=== PATIENT | female | born 1960 | race Caucasian/White ===

== ENCOUNTER → 2016-03-06 | Outpatient (REF) | payer OTHER ==
[~2016-03-06] MED LIST: AUGM875T27 OR; CYCL5TA PO; CYMB60CA3 PO; DRIS50002 PO; ENDOCET PO; GLUC500C5 PO; MULTCAP11 PO; NAPR500T OR; NAPR500T2 PO; PERC10TA17 PO; PERCOCET OR; PERCOCET PO; SIMV40TA2 PO; TYLE650T30 PO; VARE1TA PO; ZOFR4TAB3 OR; lortab PO
[2016-03-06 19:12] LABS: BASO # 0.1 K/mm3 (0.0-0.2); EOS # 0.5 K/mm3 (0.0-0.50); EOS % 4.6 % (0.0-3.0); LARGE UNSTAINED CELL # 0.3 K/mm3 (0.0-0.4); LARGE UNSTAINED CELL % 3.2 % (0.0-4.0); LYMPH # 5.4 K/mm3 (1.5-4.5); LYMPH % 52.4 % (24.0-44.0); MEAN CORPUSCULAR HEMOGLOBIN 30.2 pg (27.0-33.0); MEAN CORPUSCULAR HGB CONC 33.3 g/dl (32.0-36.5); MEAN CORPUSCULAR VOLUME 90.6 fl (80.0-96.0); MONO # 0.6 K/mm3 (0.0-0.8); MONO % 5.8 % (0.0-5.0); NEUTROPHILS # 3.4 K/mm3 (1.8-7.7); PLATELET COUNT, AUTOMATED 271 k/mm3 (150-450); RED CELL DISTRIBUTION WIDTH 12.5 % (11.5-14.5)
[2016-03-06 19:15] LABS: WHITE BLOOD COUNT 10.3 K/mm3 (4.0-10.0)
[2016-03-06 20:46] LABS: ALBUMIN 4.7 GM/DL (3.2-5.2); ALBUMIN/GLOBULIN RATIO 1.68 (1.00-1.93); ALKALINE PHOSPHATASE 99 U/L (45-117); ALT/SGPT 21 U/L (12-78); ANION GAP 7 MEQ/L (8-16); AST/SGOT 18 U/L (15-37); BILIRUBIN,TOTAL 0.3 MG/DL (0.2-1.0); BLOOD UREA NITROGEN 10 MG/DL (7-18); CALCIUM LEVEL 9.1 MG/DL (8.5-10.1); CARBON DIOXIDE LEVEL 33 MEQ/L (21-32); CHLORIDE LEVEL 101 MEQ/L (98-107); CHOLESTEROL LEVEL 286 MG/DL (<200); CREATININE FOR GFR 0.84 MG/DL (0.55-1.02); GLOMERULAR FILTRATION RATE > 60.0 (>51); GLUCOSE, FASTING 118 MG/DL (70-105); SODIUM LEVEL 141 MEQ/L (136-145); TOTAL PROTEIN 7.5 GM/DL (6.4-8.2); TRIGLYCERIDES LEVEL 275 MG/DL (<150)
== END ==
LOC: M SFHCADAM 15:57
PROVIDERS: ATTEND Physician Assistant Medical
DX: F17.210 Nicotine dependence, cigarettes, uncomplicated (principal); E55.9 Vitamin D deficiency, unspecified; G89.29 Other chronic pain

== ENCOUNTER → 2016-03-07 | Outpatient (REF) | payer OTHER ==
[2016-03-07 14:11] LABS: FREE T4 1.22 NG/DL (0.76-1.46)
== END ==
LOC: M SFHCADAM 07:45
PROVIDERS: ATTEND Physician Assistant Medical
DX: G89.29 Other chronic pain (principal); R79.89 Other specified abnormal findings of blood chemistry

== ENCOUNTER → 2016-03-18 | Outpatient (CLI) | payer OTHER ==
--- NOTE | 2016-03-19 05:05 | REP ---
Clinical: Lower back pain. Technique: AP, lateral, bilateral oblique and coned-down views of the lumbosacral spine. Findings: Alignment and lordosis maintained. No acute fracture / compression injury or subluxation. Mild osteopenia is suggested along with mild multilevel degenerative changes including disc space narrowing at the L5-S1 level as well as lower thoracic and T12-L1 levels with minimal anterior spurring. No spondylolysis or spondylolisthesis appreciated. Impression: Mild osteopenia and mild degenerative changes as detailed above. Signed by Kody Burch MD 03/19/2016 04:57 A
--- NOTE | 2016-03-19 05:07 | REP ---
Clinical: Cervicalgia a Technique: AP, lateral, flexion/extension, bilateral oblique, and open-mouth views. Findings: Alignment and lordosis maintained. No acute fracture / compression injury or subluxation. Minimal age-related changes include subtle anterior spurring at the C6-7 and to a lesser extent the C5-6 levels as well as very minimal disc space narrowing at the C7-T1 level. Spinous processes are intact and normal. Prevertebral soft tissues are normal. Oblique views demonstrate patent neural foramen. Open mouth view demonstrates normal C1-C2 articulation and odontoid process. Impression: Mild age-related degenerative changes. Signed by Kody Burch MD 03/19/2016 04:59 A
--- NOTE | 2016-03-19 05:09 | REP ---
Clinical: Pain . Technique: AP, lateral views of the left knee. Findings: The osseous structures and joint spaces are intact and normal. There is no evidence for acute fracture or dislocation. No joint effusion is appreciated. Surrounding soft tissues are unremarkable. No subcutaneous emphysema or radiodense foreign body. No overt arthritic degenerative changes appreciated. Impression: Normal age-appropriate left knee radiographs. Signed by Kody Burch MD 03/19/2016 05:01 A
== END ==
LOC: M ADAMS 13:46
PROVIDERS: ATTEND Physician Assistant Medical
DX: M54.2 Cervicalgia (principal); G89.29 Other chronic pain; M54.5 Low back pain

== ENCOUNTER → 2016-04-15 | Outpatient (CLI) | payer OTHER ==
--- NOTE | 2016-04-19 00:12 | ECWPNPC ---
PATIENT NAME: SARKIS CORONADO : 1960 GENDER: FEMALE VISIT DATE: 04/15/2016 DISCHARGE DATE: 04/15/16 1132 VISIT LOCKED DATE TIME: PHYSICIAN: FANNIE MOREIRA RESOURCE: FANNIE MOREIRA REASON FOR APPOINTMENT 1. CHRONIC PAIN RECONSULT HISTORY OF PRESENT ILLNESS FALL RISK SCREENING: SCREENING :NO FALLS IN THE PAST YEAR PAIN SCREENING: PATIENT HAS A COMPLAINT OF ACUTE OR CHRONIC PAIN YES TODAY'S VISIT: NOTES: HAD BEEN SEEING PCP WHOM HAD BEEN PRESCRIBING HER PAIN MEDS -VWAS DECREASED IN DOSAGE AND WAS PUT ON WEEKLY MEDS..REPORTS PAIN 7/10. NOTES PAIN IS CENTERED OVER RIGHT SHOULDER, LOW BACK AND LEFT KNEE. LEVEL OF PAIN DEPENDS ON ACTIVITY. STATES SHE IS HAVING HEART PROBLEMS - HAS BEEN TO THE ER 3 TIMES. USES NTG, BABY ASPIRIN TO TREAT CHEST PAIN BUT HAS NOT YET SEEN A WAREHOUSE ORDER PICKER. RATES PAIN LEVEL TODAY 7/10. DESCRIBES IT CONSTANT ACHING SHARP STABBING AND SORE.. CURRENT MEDICATIONS TAKING NAPROXEN 500 MG TABLET 1 TABLET NEEDED ORALLY EVERY 12 HRS TAKING VITAMIN D (ERGOCALCIFEROL) 10976 UNIT CAPSULE 1 CAPSULE ORALLY ONCE A WEEK TAKING CYCLOBENZAPRINE HCL 5 MG TABLET 1 TABLET ORALLY THREE TIMES A DAY NEEDED TAKING OXYCODONE-ACETAMINOPHEN 7.5-325 MG TABLET 1 TABLET NEEDED ORALLY EVERY 8 HRS, MDD 3 NOT-TAKING FISH OIL 1000 MG CAPSULE 2 CAPSULE ORALLY TWICE DAILY MEDICATION LIST REVIEWED AND RECONCILED WITH THE PATIENT PAST MEDICAL HISTORY CHRONIC NECK AND LOW BACK PAIN REQUIRING MARZIPAN MAKER OPIATE MEDICATIONS - PREVIOUSLY FOLLOWED BY [facility]IN [facility] - NO CONCERNS, DUE TO APPOINTMENT TIME CONFLICTS MED MANAGEMENT WAS DEFERRED BACK TO PCP HYPERLIPIDEMIA 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 SURGICAL HISTORY EXPLORATORY LAP C SECTION X [address] PEREIRAH - [facility] 08/30/13 COLPOSCOPY FAMILY HISTORY FATHER: ALIVE MOTHER: 67 YRS MATERNAL GRAND FATHER: 3DAUGHTER(S) . BROTHER OF [place] BUT NOT HODGKIN LYMP.3 DAUGHTERS -1 HAD BONE [place] , NON HODGKINS LYMPHOBLASTIC LYMPHOMA B CELL IN THE BONES, HAS ANOTHER CANCER BUT NO DIAGNOSIS OF YET. ONE TWIN IS HAVING SAME BONE ISSUES AND THE DAUGHTER WITH CA AND WILL BE HAVING A WORK UP THURS. SOCIAL HISTORY GENERAL: TOBACCO USE ARE YOU A:CURRENT SMOKER HOW MANY CIGARETTES A DAY DO YOU SMOKE?5 OR LESS HOW SOON AFTER YOU WAKE UP DO YOU SMOKE YOUR FIRST CIGARETTE?31-60 MIN HOW OFTEN DO YOU SMOKE CIGARETTES?SOME DAYS, BUT NOT EVERY DAY PATIENT COUNSELED ON THE DANGERS OF TOBACCO USE AND URGED TO QUIT:04/15/2016 ARE YOU INTERESTED IN QUITTING?THINKING ABOUT QUITTING COUNSELED THE PATIENT ON SMOKING CESSATION, EDUCATION [id number]/20/2017 ADDITIONAL FINDINGS: TOBACCO USERCHEWS FINE CUT TOBACCO DENIES EVERY DOING THIS. SMOKING CESSATION INFORMATION GIVEN10/16/2015 ALCOHOL SCREENING POINTS: 1, INTERPRETATION: NEGATIVE. RECREATIONAL DRUG USE DRUG USE?NO CAFFEINE CAFFEINE USE?YES HOW OFTEN AND HOW MUCH? 5-6 CUPS COFFEE DAILY SEXUAL HX HAD SEX IN THE LAST 12 MONTHS (VAGINAL, ORAL, OR ANAL)?: YES, WITH: MEN ONLY, USE PROTECTION?: NO, HAVE YOU EVER HAD AN STD?: NO, LMP:: 06/2013. 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 DIET: LOW FAT, LOW CHOLESTEROL. EXERCISE: NO REGULAR EXERCISE - STAYS ACTIVE. RESTORATIONISM: NO HOAHAOISM BELIEFS THAT WOULD IMPACT HEALTH CARE. LANGUAGE: TELUGU. EDUCATION: COLLEGE. PLAN OF CARE FOR THE PAIN CLINIC REVIEWED WITH PATIENT AND SHE VERBALIZED UNDERSTANDING. LEARNING BARRIERS / SPECIAL NEEDS CHANGE FROM LAST VISIT?NO BARRIERS TO LEARNING?NO HEARING IMPAIRED?NO VISION IMPAIRED?NO COGNITIVELY IMPAIRED?NO READINESS TO LEARN?YES LEARNING PREFERENCES?NO LEARNING CAPABILITIES PRESENT?YES EMOTIONAL BARRIERS?NO PAIN CLINIC PFS, CLERGY, PUBLIC HEALTH REFERRALS PFS REFERRAL NEEDED?NO CLERGY REFERRAL NEEDED?NO PUBLIC HEALTH REFERRAL NEEDED?NO ADVANCED DIRECTIVES HEALTH CARE PROXY?NO POWER OF TUBE BACKER?NO : YES. DOMESTIC VIOLENCE: NONE. HOSPITALIZATION/MAJOR DIAGNOSTIC PROCEDURE SURGERY RELATED ONLY REVIEW OF SYSTEMS CONSTITUTIONAL: ANY CHANGE IN YOUR MEDICAL CONDITION? YES CHEST PAIN AND PRESSURE THAT SHE IS BEING WORKED UP FOR . CHILLS NO . FEVER NO . INFECTION: DO YOU HAVE NEW INFECTIONS? NO . DO YOU HAVE HISTORY OF MRSA? NO . MUSCULOSKELETAL: ANY NEW PATTERNS OF PAIN OR NUMBNESS? YES PAIN HAS INCREASED IN INTENSITY AND SHE IS UNDER A HUGE AMOUNT OF STRESS AT THIS TIME . SYTEMIC LUPUS NO . GASTROENTEROLOGY: ANY NEW CHANGE IN BOWEL CONTROL? NO . BARRETTS ESOPHAGUS NO . CIRRHOSIS NO . HEPATITIS NO . LIVER FAILURE NO . ACID REFLUX NO . UNEXPLAINED WEIGHT LOSS NO . GENITOURINARY: ANY NEW CHANGE IN BLADDER CONTROL? NO . IS THERE A CHANCE YOU COULD BE ? NO . HEMATOLOGY/LYMPH: DO YOU TAKE ANY BLOOD THINNERS? (FOR EXAMPLE- COUMADIN, PLAVIX, AGGRENOX, PLATEL, PRADAXA, OR XARELTO) NO . WHEN WAS YOUR LAST DOSE? DATE: TIME: . LOW PLATELET COUNT NO . SICKLE CELL DISEASE NO . VON WILLIEBRANDS NO . FACTOR V LEIDEN NO . THALLASEMIA NO . ANEMIA NO . EASY BRUISING NO . NEUROLOGY: HAVE YOU FALLEN IN THE PAST 6 MONTHS? YES, SLIPPED ON ICE--NO FRACTURES . ANY NEW EXTREMITY NUMBNESS OR WEAKNESS? NO . HEAD INJURY NO . DEMENTIA NO . CEREBRAL PALSY NO . MULTIPLE SCLEROSIS NO . DIZZINESS NO . HEADACHE ADMITS, HISTORY IF MIGRAINES . STROKES NO . VERTIGO NO . CARDIOLOGY: DO YOU HAVE A PACEMAKER OR DEFIBRILLATOR? NO . ANGINA NO . HEART ATTACK NO . HEART SURGERY NO . CONGESTIVE HEART FAILURE/FLUID OVERLOAD NO . CHEST PAIN PATIENT ADMITS, LEFT-SIDED, MIDSTERNALPRESSURE-LIKE SENSATION, , RADIATING TO LEFT ARM, RANDOM, RELIEVED WITH SUBLINGUAL NTG, SHARP. BEING WORKED UP AT [facility]. SCHEDULED FOR AN ECHO ON . . HIGH BLOOD PRESSURE NO . IRREGULAR HEART BEAT NO . RESPIRATORY: HAVE YOU BEEN SICK IN THE PAST WEEK? NO . FEVER NO . FLU LIKE SYMPTOMS? NO . CPAP NO . BYPAP NO . ASTHMA NO . EMPHYSEMA NO . CHRONIC LUNG DISEASES NO . SHORTNESS OF BREATH ON EXERTION NO . COUGH NO . SNORING NO . INTEGUMENTARY: DO YOU HAVE ANY RASHES OR OPEN SORES? NO . ALLERGIC/IMMUNO: ARE YOU ALLERGIC TO SHELLFISH OR IV DYE? NO . ANY NEW ALLERGIES? NO . PSYCHIATRIC: DO YOU HAVE THOUGHTS OF HURTING YOURSELF OR SOMEONE ELSE? NO . ARE YOU ABUSED, NEGLECTED, OR IN AN UNSAFE ENVIRONMENT? NO . ENDOCRINOLOGY: ARE YOU DIABETIC? NO . THYROID DISORDER NO . OTHER: DO YOU NEED ANY PRESCRIPTIONS? YES OXYCODONE / ACETOMIN., CYCLOBENZAPRINE . IF YES, PLEASE LIST: ____ . ANY NEW PROBLEMS WITH YOUR MEDICATIONS? NO . WHEN DID YOU LAST EAT? ____ . WHEN DID YOU LAST DRINK? ____ . WHAT DID YOU LAST DRINK? ____ . NAME OF PERSON DRIVING YOU HOME? ____ . DO YOU HAVE ANY OTHER QUESTIONS OR CONCERNS YES, WOULD LIKE TO DISCUSS MEDICTION AND PAIN RELIEF . REVIEWED BY: PROVIDER: FANNIE MAURICIO . VITAL SIGNS WT 117.8 LBS, HT 64 IN, BMI 20.22 INDEX, BP 103/69 MM HG, HR 87 /MIN, RR 16 /MIN, TEMP 98.4 F, OXYGEN SAT % 96%, NA INITIALS SC 15:33, REVIEWED BY: AD. EXAMINATION GENERAL EXAMINATION: PSYCHALERT , ORIENTED X 3 , ANXIOUS, GOOD EYE CONTACT. HEENT:NORMOCEPHALIC. NO LYMPHADENOPATHY. NO THYROMEGALY.. LUNGS:CLEAR TO AUSCULTATION BILATERALLY. NO WHEEZES NO RALES NO RHONCHI. HEART:HEART RATE REGULAR, RAPID. NO CARDIAC BRUITS. NO MURMUR HEARD TODAY.. MUSCULOSKELETAL:TENDER WITH PALPATION OVER LUMBOSACRAL AXIS. POINTS AND TIGHT FIBROUS BANDS ARE IDENTIFIED OVER LUMBAR PARAVERTEBRAL MUSCLES. RISES EASILY TO A STANDING POSITION. POSTURE UPRIGHT. GAIT IS WIDE-BASED VERY SLIGHT RIGHT LEG LIMP. POINT TENDERNESS OVER ANTERIOR AND POSTERIOR AC JOINT. RIGHT SIDE. ABLE TO ABDUCT RIGHT SHOULDER TO 90 . PAIN IS NOTED WITH INTERNAL AND EXTERNAL ROTATION. EQUAL AND STRONG. NO FOCAL WEAKNESS IDENTIFIED IN THE UPPER OR LOWER EXTREMITIES.. JOINTS:LEFT KNEE TENDERNESS TO PALPATION. NO SIGNIFICANT EDEMA. NO WARMTH NOTED ON PALPATION. NEUROLOGIC EXAM:EOMS ARE INTACT WITHOUT NYSTAGMUS. CRANIAL NERVES II THROUGH XII ARE GROSSLY INTACT. SPEECH IS NON-DYSARTHRIC. RAPID REPEATING ARM MOVEMENTS NON-DYSMETRIC. NO FOCAL SENSORY DEFICIT.. ASSESSMENTS PRIMARY OSTEOARTHRITIS INVOLVING MULTIPLE JOINTS - M15.0 (PRIMARY) OTHER CHRONIC PAIN - G89.29 PAIN IN RIGHT SHOULDER - M25.511 LUMBAR DISC DISPLACEMENT WITHOUT MYELOPATHY - M51.26 CHRONIC PRESCRIPTION OPIATE USE - Z79.891 TREATMENT PRIMARY OSTEOARTHRITIS INVOLVING MULTIPLE JOINTS REFILL OXYCODONE-ACETAMINOPHEN TABLET, 7.5-325 MG, 1 TABLET NEEDED, ORALLY, EVERY 8 HRS, MDD 3, 15 DAYS, 45, REFILLS 0 [facility] MRI SPINE, L.S. WITH [id number],SUSAN M 04/15/2016 4:41:59 PM > INCREASED BACK PAIN NOTES: NARCOTIC AGREEMENT TODAY. UTOX TODAY. CLINICAL NOTES: ISTOP REGISTRY REVIEWED AND DEMNOSTRATES COMPLLIANCE. BRINGS IN MEDICATIONS WHICH IS APPROPRIATE FOR WHAT WAS DISPENSED. I DID ASK SARKIS BRYANT THE REASON FOR HER MEDICATION CHANGE AND BEING PUT ON A WEEKLY REFILL. SHE STATES THAT THERE WAS A PERSONALITY DIFFERENCE. I WILL FURTHER EXPLORE THIS AND I WILL PLAN TO SEE HER BACK ON WITHIN THE 2 WEEK PERIOD TO DISCUSS FURTHER OPTIONS. PROCEDURE CODES FA211 ESTABILISHED PATIENT [facility] CHARGE DISPOSITION & COMMUNICATION FOLLOW UP 2 WEEKS (REASON: SHARMILA TO GET IMAGING ON RIGHT SHOULDER AT [facility] - CHECK AUTH FOR MRI LUMBAR SPINESRACUSE) ELECTRONICALLY SIGNED BY LUIS EWING ON 04/18/2016 AT 11:37 AM EST DISCLAIMER : THIS IS A VISIT SUMMARY EXTRACTED FROM THE [employer] CHART. IT IS NOT A COPY OF THE [employer] PROGRESS NOTE. LISA
== END ==
LOC: M PAIN 15:20
PROVIDERS: ATTEND Nurse Practitioner Family
DX: Z09 Encounter for follow-up examination after completed treatment for conditions other than malignant neoplasm (principal); G89.29 Other chronic pain; M15.0 Primary generalized (osteo)arthritis; M25.511 Pain in right shoulder; M51.26 Other intervertebral disc displacement, lumbar region; M54.2 Cervicalgia; M54.5 Low back pain; F17.210 Nicotine dependence, cigarettes, uncomplicated; H18.50 Unspecified hereditary corneal dystrophies; G43.909 Migraine, unspecified, not intractable, without status migrainosus; E78.5 Hyperlipidemia, unspecified; R07.89 Other chest pain; M25.562 Pain in left knee; Z79.891 Long term (current) use of opiate analgesic; Z79.1 Long term (current) use of non-steroidal anti-inflammatories (NSAID); Z79.899 Other long term (current) drug therapy; Z86.73 Personal history of transient ischemic attack (TIA), and cerebral infarction without residual deficits; Z86.718 Personal history of other venous thrombosis and embolism

== ENCOUNTER → 2016-05-16 | Outpatient (CLI) | payer OTHER ==
--- NOTE | 2016-05-17 00:56 | ECWPNPC ---
PATIENT NAME: SARKIS CORONADO : 1960 GENDER: FEMALE VISIT DATE: 05/16/2016 DISCHARGE DATE: 05/16/16 1615 VISIT LOCKED DATE TIME: PHYSICIAN: FANNIE MOREIRA RESOURCE: FANNIE MOREIRA REASON FOR APPOINTMENT 1. BACK/SHOULDER HISTORY OF PRESENT ILLNESS HISTORY OF PRESENT ILLNESS: PAIN THE PATIENT DESCRIBES THE PAIN... FALL RISK SCREENING: SCREENING :NO FALLS IN THE PAST YEAR TODAY'S VISIT: NOTES: WAS SCHEDULED TO ETURN IN 2 WEEKS AFTER HER LAST VISIT. WAS NOT ABLE TO KEEP THIS APPOINTMENT DUE TO HER LIFE SCHEDULE. HAS HAD NOOXYCODONE SINCE THIS. REPORTS SHE HAS BEEN USING NATURAL REMEDIES AND HER HORSE MEDICINES AND STATE HER PAIN IS MANAGED. REPORTS SHE IS HAVING GI DISCOMFORT FROM AN ANTI INFLAMMATORY. REPORTS SHE IS VERY UPSET WITH HAVING HAD HER MEDS DISRUPTED THIS WAS "JUST PERFECT".. CURRENT MEDICATIONS TAKING NAPROXEN 500 MG TABLET 1 TABLET NEEDED ORALLY EVERY 12 HRS TAKING VITAMIN D (ERGOCALCIFEROL) 77653 UNIT CAPSULE 1 CAPSULE ORALLY ONCE A WEEK TAKING CYCLOBENZAPRINE HCL 5 MG TABLET 1 TABLET ORALLY THREE TIMES A DAY NEEDED TAKING OXYCODONE-ACETAMINOPHEN 7.5-325 MG TABLET 1 TABLET NEEDED ORALLY EVERY 8 HRS, MDD 3 NOT-TAKING FISH OIL 1000 MG CAPSULE 2 CAPSULE ORALLY TWICE DAILY MEDICATION LIST REVIEWED AND RECONCILED WITH THE PATIENT PAST MEDICAL HISTORY CHRONIC NECK AND LOW BACK PAIN REQUIRING ASSISTED OPIATE MEDICATIONS - PREVIOUSLY FOLLOWED BY [facility] - NO CONCERNS, DUE TO APPOINTMENT TIME CONFLICTS MED MANAGEMENT WAS DEFERRED BACK TO PCP HYPERLIPIDEMIA 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 SOCIAL HISTORY GENERAL: TOBACCO USE ARE YOU A:CURRENT SMOKER HOW MANY CIGARETTES A DAY DO YOU SMOKE?11-20 HOW SOON AFTER YOU WAKE UP DO YOU SMOKE YOUR FIRST CIGARETTE?WITHIN 5 MIN HOW OFTEN DO YOU SMOKE CIGARETTES?EVERY DAY PATIENT COUNSELED ON THE DANGERS OF TOBACCO USE AND URGED TO QUIT:05/16/2016 ARE YOU INTERESTED IN QUITTING?NOT READY TO QUIT COUNSELED THE PATIENT ON SMOKING EFFECTS, EDUCATION [id number]/23/2017 ADDITIONAL FINDINGS: TOBACCO USERCHEWS FINE CUT TOBACCO DENIES EVERY DOING THIS. SMOKING CESSATION INFORMATION GIVEN10/16/2015 ALCOHOL SCREENING POINTS: 1, INTERPRETATION: NEGATIVE. RECREATIONAL DRUG USE DRUG USE?NO CAFFEINE CAFFEINE USE?YES HOW OFTEN AND HOW MUCH? 5-6 CUPS COFFEE DAILY SEXUAL HX HAD SEX IN THE LAST 12 MONTHS (VAGINAL, ORAL, OR ANAL)?: YES, WITH: MEN ONLY, USE PROTECTION?: NO, HAVE YOU EVER HAD AN STD?: NO, LMP:: 06/2013. OCCUPATION: IN HOUSE APPLICATIONS SYSTEMS ANALYST. DIET: LOW FAT, LOW CHOLESTEROL. EXERCISE: NO REGULAR EXERCISE - STAYS ACTIVE. YAZIDI: NO DENOMINATIONAL BELIEFS THAT WOULD IMPACT HEALTH CARE. LANGUAGE: ALGERIAN. EDUCATION: COLLEGE. PLAN OF CARE FOR THE PAIN CLINIC REVIEWED WITH PATIENT AND SHE VERBALIZED UNDERSTANDING. LEARNING BARRIERS / SPECIAL NEEDS CHANGE FROM LAST VISIT?NO BARRIERS TO LEARNING?NO HEARING IMPAIRED?NO VISION IMPAIRED?NO COGNITIVELY IMPAIRED?NO READINESS TO LEARN?YES LEARNING PREFERENCES?NO LEARNING CAPABILITIES PRESENT?YES EMOTIONAL BARRIERS?NO PAIN CLINIC PFS, CLERGY, PUBLIC HEALTH REFERRALS PFS REFERRAL NEEDED?NO CLERGY REFERRAL NEEDED?NO PUBLIC HEALTH REFERRAL NEEDED?NO ADVANCED DIRECTIVES HEALTH CARE PROXY?NO POWER OF AV[employer] SHOP SUPERVISOR?NO : YES. DOMESTIC VIOLENCE: NONE. REVIEW OF SYSTEMS CONSTITUTIONAL: LEVEL OF FUNCTIONALITY STATES THAT SHE IS ON THE ROAD TO [facility] FOR HER DAUGHTERS CARE, AND WORKS 6 HRS A DAY AND CARES FOR 11 HOURSES. . ANY CHANGE IN YOUR MEDICAL CONDITION? NO . CHILLS NO . FEVER NO . INFECTION: DO YOU HAVE NEW INFECTIONS? NO . DO YOU HAVE HISTORY OF MRSA? NO . MUSCULOSKELETAL: ANY NEW PATTERNS OF PAIN OR NUMBNESS? NO . GASTROENTEROLOGY: GENERAL DENIES HEMATEMESIS OR HEMATACHEZIA . ANY NEW CHANGE IN BOWEL CONTROL? NO . GENITOURINARY: ANY NEW CHANGE IN BLADDER CONTROL? NO . IS THERE A CHANCE YOU COULD BE ? NO . HEMATOLOGY/LYMPH: DO YOU TAKE ANY BLOOD THINNERS? (FOR EXAMPLE- COUMADIN, PLAVIX, AGGRENOX, PLATEL, PRADAXA, OR XARELTO) NO . WHEN WAS YOUR LAST DOSE? DATE: TIME: . NEUROLOGY: HAVE YOU FALLEN IN THE PAST 6 MONTHS? YES, OVER THE WINTER HER LEFT KNEE GAVE OUT. NO INJURY . ANY NEW EXTREMITY NUMBNESS OR WEAKNESS? NO . CARDIOLOGY: DO YOU HAVE A PACEMAKER OR DEFIBRILLATOR? NO . RESPIRATORY: HAVE YOU BEEN SICK IN THE PAST WEEK? NO . FEVER NO . FLU LIKE SYMPTOMS? NO . COUGH NO . INTEGUMENTARY: DO YOU HAVE ANY RASHES OR OPEN SORES? NO . ALLERGIC/IMMUNO: ARE YOU ALLERGIC TO SHELLFISH OR IV DYE? NO . ANY NEW ALLERGIES? NO . PSYCHIATRIC: DO YOU HAVE THOUGHTS OF HURTING YOURSELF OR SOMEONE ELSE? NO . ARE YOU ABUSED, NEGLECTED, OR IN AN UNSAFE ENVIRONMENT? NO . ENDOCRINOLOGY: ARE YOU DIABETIC? NO . OTHER: DO YOU NEED ANY PRESCRIPTIONS? YES . IF YES, PLEASE LIST: ____PERCOCET . ANY NEW PROBLEMS WITH YOUR MEDICATIONS? NO . WHEN DID YOU LAST EAT? ____ . WHEN DID YOU LAST DRINK? ____ . WHAT DID YOU LAST DRINK? ____ . NAME OF PERSON DRIVING YOU HOME? ____ . DO YOU HAVE ANY OTHER QUESTIONS OR CONCERNS NO . REVIEWED BY: PROVIDER: FANNIE MAURICIO . VITAL SIGNS WT 121.2 LBS, HT 64 IN, BMI 20.80 INDEX, BP 109/72 MM HG, HR 86 /MIN, RR 16 /MIN, TEMP 96.5 F, OXYGEN SAT % 98%, NA INITIALS SC15 :51, REVIEWED BY: AD. EXAMINATION GENERAL EXAMINATION: PSYCHALERT , ORIENTED X 3 , PRESSURED SPEECH, FRUSTRATED. MUSCULOSKELETAL:DECREASED ROM OF RIGHT SHOULDER. POSTURE UPRIGHT. GAIT NONANTALGIC. ASSESSMENTS PRIMARY OSTEOARTHRITIS INVOLVING MULTIPLE JOINTS - M15.0 TREATMENT OTHERS NOTES: USE NATURAL PAIN RELIEVING REMEDIES. RECOMMEND NO OPIOIDS. PROCEDURE CODES FA211 ESTABILISHED PATIENT [facility] CHARGE DISPOSITION & COMMUNICATION FOLLOW UP CALL IF APPOINTMENT NEEDED ELECTRONICALLY SIGNED BY LUIS EWING ON 05/16/2016 AT 04:29 PM EDT DISCLAIMER : THIS IS A VISIT SUMMARY EXTRACTED FROM THE [employer] CHART. IT IS NOT A COPY OF THE [employer] PROGRESS NOTE. AMYD
== END ==
LOC: M PAIN 15:20
PROVIDERS: ATTEND Nurse Practitioner Family
DX: M54.5 Low back pain (principal); M54.2 Cervicalgia; M15.0 Primary generalized (osteo)arthritis; G89.29 Other chronic pain; Z79.899 Other long term (current) drug therapy; Z79.891 Long term (current) use of opiate analgesic; E78.5 Hyperlipidemia, unspecified; F17.210 Nicotine dependence, cigarettes, uncomplicated; E55.9 Vitamin D deficiency, unspecified

== ENCOUNTER → 2017-12-24 | Outpatient (REF) | payer OTHER ==
[2017-12-24 13:31] LABS: BASO # 0.1 10^3/uL (0.0-0.2); BASO % 0.7 % (0.0-1.0); EOS # 0.4 10^3/uL (0.0-0.50); EOS % 4.5 % (0.0-3.0); HEMATOCRIT 44.4 % (36.0-47.0); HEMOGLOBIN 14.5 g/dl (12.0-15.5); IMMATURE GRANULOCYTE % 0.2 % (0-3.0); LYMPH # 3.5 10^3/uL (1.5-4.5); LYMPH % 39.3 % (24.0-44.0); MEAN CORPUSCULAR HEMOGLOBIN 29.8 pg (27.0-33.0); MEAN CORPUSCULAR HGB CONC 32.7 g/dl (32.0-36.5); MEAN CORPUSCULAR VOLUME 91.2 fl (80.0-96.0); MONO # 0.6 10^3/uL (0.0-0.8); MONO % 6.4 % (0.0-5.0); NEUTROPHILS # 4.3 10^3/uL (1.8-7.7); NEUTROPHILS % 48.9 % (36.0-66.0); PLATELET COUNT, AUTOMATED 256 10^3/uL (150-450); RED BLOOD COUNT 4.87 10^6/uL (4.00-5.40); RED CELL DISTRIBUTION WIDTH 13.3 % (11.5-14.5); WHITE BLOOD COUNT 8.9 10^3/uL (4.0-10.0)
[2017-12-24 13:49] LABS: ALBUMIN 4.3 GM/DL (3.2-5.2); ALKALINE PHOSPHATASE 84 U/L (45-117); ALT/SGPT 27 U/L (12-78); ANION GAP 5 MEQ/L (8-16); AST/SGOT 20 U/L (7-37); BILIRUBIN,TOTAL 0.4 MG/DL (0.2-1.0); BLOOD UREA NITROGEN 12 MG/DL (7-18); CALCIUM LEVEL 9.5 MG/DL (8.5-10.1); CARBON DIOXIDE LEVEL 31 MEQ/L (21-32); CHLORIDE LEVEL 103 MEQ/L (98-107); CHOLESTEROL LEVEL 321 MG/DL (<200); CHOLESTEROL RISK RATIO 7.642 (<5); CREATININE FOR GFR 0.74 MG/DL (0.55-1.30); GLOMERULAR FILTRATION RATE > 60.0 (>51); GLUCOSE, FASTING 90 MG/DL (70-100); HDL CHOLESTEROL 42 MG/DL (>40); LDL CHOLESTEROL 237 MG/DL (<100); NON-HDL-C 279 MG/DL; POTASSIUM SERUM 4.2 MEQ/L (3.5-5.1); SODIUM LEVEL 139 MEQ/L (136-145); TOTAL PROTEIN 7.6 GM/DL (6.4-8.2); TRIGLYCERIDES LEVEL 209 MG/DL (<150)
[2017-12-24 13:52] LABS: TOTAL 25(OH) VITAMIN D 27.6 NG/ML (30.0-100.0)
[2017-12-24 13:58] LABS: ESTIMATED AVERAGE GLUCOSE 117 MG/DL (60-110); HEMOGLOBIN A1c 5.7 %
== END ==
LOC: M LAB REF 12:35
DX: Z13.9 Encounter for screening, unspecified (principal)

== ENCOUNTER → 2019-05-18 | Outpatient (CLI) | payer OTHER ==
[~2019-05-18] MED LIST changes: -CYCL5TA PO; +CYCL5TAB5 PO; -DRIS50002 PO; +DRIS50003 PO; +NAPR-885 PO; -NAPR500T2 PO; +ONDA-228 OR; +OXYC1TAB23 OR; -PERC10TA17 PO; +PERC10TA26 PO; -PERCOCET OR; -SIMV40TA2 PO; +SIMV40TA20 PO; -ZOFR4TAB3 OR
[2019-05-18 15:32] LABS: BASO # 0.1 10^3/uL (0.0-0.2); BASO % 0.7 % (0.0-1.0); EOS # 0.5 10^3/uL (0.0-0.5); EOS % 4.7 % (0.0-3.0); HEMATOCRIT 46.1 % (36.0-47.0); HEMOGLOBIN 15.2 g/dl (12.0-15.5); LYMPH # 4.6 10^3/uL (1.5-5.0); LYMPH % 48.3 % (24.0-44.0); MEAN CORPUSCULAR HEMOGLOBIN 30.6 pg (27.0-33.0); MEAN CORPUSCULAR VOLUME 92.9 fl (80.0-96.0); MONO # 0.7 10^3/uL (0.0-0.8); MONO % 7.3 % (0.0-5.0); NEUTROPHILS # 3.7 10^3/uL (1.5-8.5); NEUTROPHILS % 38.8 % (36.0-66.0); PLATELET COUNT, AUTOMATED 271 10^3/uL (150-450); RED BLOOD COUNT 4.96 10^6/uL (4.00-5.40); WHITE BLOOD COUNT 9.6 10^3/uL (4.0-10.0)
[2019-05-18 15:59] LABS: ERYTHROCYTE SEDIMENTATION RATE 18 mm/hr (0-30)
[2019-05-18 16:05] LABS: ALBUMIN 4.3 GM/DL (3.2-5.2); ALT/SGPT 29 U/L (12-78); BILIRUBIN,TOTAL 0.3 MG/DL (0.2-1.0); BLOOD UREA NITROGEN 13 MG/DL (7-18); C REACTIVE PROTEIN QUANTITATIV 0.48 MG/DL (0.00-0.30); CALCIUM LEVEL 9.3 MG/DL (8.5-10.1); CARBON DIOXIDE LEVEL 31 MEQ/L (21-32); CHLORIDE LEVEL 103 MEQ/L (98-107); CREATININE FOR GFR 0.71 MG/DL (0.55-1.30); GLOMERULAR FILTRATION RATE > 60.0 (>51); GLUCOSE, FASTING 85 MG/DL (70-100); POTASSIUM SERUM 4.3 MEQ/L (3.5-5.1); SODIUM LEVEL 137 MEQ/L (136-145); TOTAL PROTEIN 7.8 GM/DL (6.4-8.2)
[2019-05-21 00:06] LABS: EBV VIRAL CAPSID AG IgM <36.0 U/mL (0.0-35.9); Lyme Disease IgG/IgM Antibodie <0.91 ISR (0.00-0.90); Lyme Disease IgM Ab Quantitati <0.80 index (0.00-0.79)
== END ==
LOC: M WUC 13:18
PROVIDERS: ATTEND Nurse Practitioner Family
DX: M79.10 Myalgia, unspecified site (principal)

== ENCOUNTER → 2019-06-02 | Outpatient (REF) | payer OTHER ==
[2019-06-02 15:00] LABS: HEMOGLOBIN A1c 6.3 %
[2019-06-02 15:10] LABS: CPK CREATINE PHOSPHOKINASE 85 U/L (26-192); RHEUMATOID FACTOR QUANT < 10.0 IU/ML (<15.0); TOTAL PROTEIN 7.2 GM/DL (6.4-8.2)
[2019-06-02 15:18] LABS: FOLATE 14.3 NG/ML; VITAMIN B12 LEVEL 507 PG/ML
[2019-06-04 00:06] LABS: ALDOLASE 9.8 U/L (3.3-10.3); ANTINUCLEAR ANTIBODIES DIRECT Negative (Negative)
== END ==
LOC: M LABNEURO 13:47 → M LAB REF 13:47
PROVIDERS: ATTEND Psychiatry & Neurology Neurology
DX: E07.9 Disorder of thyroid, unspecified (principal); R20.0 Anesthesia of skin; R41.0 Disorientation, unspecified; M25.50 Pain in unspecified joint; M79.10 Myalgia, unspecified site; E11.9 Type 2 diabetes mellitus without complications

== ENCOUNTER 2019-06-07 17:16 | Emergency (ER) | payer OTHER ==
[2019-06-07] MEDS ORDERED: LEVE250T5 OR (18:01)
--- NOTE | 2019-06-07 18:02 | REP ---
CHEST, SINGLE VIEW: There is no evidence of acute infiltrate. No pleural effusion is seen. The heart is normal in size. The mediastinal silhouette is unremarkable. The visualized osseous structures are intact. IMPRESSION: No acute pulmonary disease. Electronically Signed by Edy Mccray MD 06/07/2019 07:52 P
[2019-06-07 18:08] LABS: HEMATOCRIT 44.8 % (36.0-47.0); MEAN CORPUSCULAR HEMOGLOBIN 30.8 pg (27.0-33.0); MEAN CORPUSCULAR HGB CONC 33.5 g/dl (32.0-36.5); PLATELET COUNT, AUTOMATED 279 10^3/uL (150-450); RED BLOOD COUNT 4.87 10^6/uL (4.00-5.40); WHITE BLOOD COUNT 9.4 10^3/uL (4.0-10.0)
[2019-06-07 18:34] LABS: BASOPHILS 1 % (0-1); BLOOD UREA NITROGEN 12 MG/DL (7-18); CALCIUM LEVEL 9.5 MG/DL (8.5-10.1); CARBON DIOXIDE LEVEL 33 MEQ/L (21-32); CHLORIDE LEVEL 105 MEQ/L (98-107); CK-MB VALUE MASS 1.1 NG/ML (<3.6); CPK CREATINE PHOSPHOKINASE 65 U/L (26-192); CREATININE FOR GFR 0.77 MG/DL (0.55-1.30); EOSINOPHILS 3 % (0-3); GLOMERULAR FILTRATION RATE > 60.0 (>51); GLUCOSE, FASTING 98 MG/DL (70-100); LYMPHOCYTES 52 % (16-44); MB/CK RELATIVE INDEX 1.69 (< OR =4); MONOCYTES 3 % (0-5); NEUTROPHILS 41 % (28-66); PLATELET ESTIMATE NORMAL (NORMAL); POTASSIUM SERUM 4.1 MEQ/L (3.5-5.1); SODIUM LEVEL 140 MEQ/L (136-145); TROPONIN I < 0.02 NG/ML (< 0.10)
[2019-06-07 19:45] VITALS: BP 137/86
--- NOTE | 2019-06-08 09:13 | ECGEPIP ---
[facility] - ED Test Date: 2019-06-07 Pat Name: SARKIS CORONADO Department: Room: - Gender: Female Sales Marketing Manager: BISMARK : 1960 Requested By: GEOVANNI Leon Order Number: [id number] Reading MD: Delmi Rock Measurements Intervals [place] Rate: 62 P: -80 NM: 208 QRS: 78 QRSD: 84 T: 75 QT: 399 QTc: 405 Interpretive Statements SINUS RHYTHM ABNORMAL RHYTHM ECG Electronically Signed on 06-08-2019 9:13:30 EDT by Delmi Rock
== END 2019-06-07 20:14 | disposition left against medical advice (07) ==
LOC: M ED 17:16 → EDUNIT# 17:16 → EDBD 17:16 → M ED 20:14
DX: R10.13 Epigastric pain (principal); I10 Essential (primary) hypertension; E78.5 Hyperlipidemia, unspecified; M54.5 Low back pain; I67.1 Cerebral aneurysm, nonruptured; Z79.899 Other long term (current) drug therapy

== ENCOUNTER → 2020-10-26 | Outpatient (REF) | payer OTHER ==
[~2020-10-26] MED LIST changes: +LEVE250T5 OR
== END ==
LOC: M LAB REF 14:55
PROVIDERS: ATTEND Physician Assistant Medical
DX: R50.9 Fever, unspecified (principal)